=== PATIENT | male | born 1965 | race Caucasian/White ===

== ENCOUNTER → 2023-10-24 | Outpatient (CLI) | payer OTHER ==
[2023-10-24 16:44] LABS: ALBUMIN 3.8 g/dL (3.5-5.0); BILIRUBIN,TOTAL 0.4 mg/dL (0.2-1.0); CREATININE 0.9 mg/dL (0.5-1.3); TOTAL PROTEIN, SERUM 6.8 g/dL (6.0-8.3)
== END | disposition home or self-care (01) ==
LOC: LAB 15:06
PROVIDERS: ATTEND Student in an Organized Health Care Education/Training Program
DX: R07.9 Chest pain, unspecified (principal)
CPT/HCPCS: 36415; 80053

== ENCOUNTER 2024-01-10 17:20 | Emergency (ER) | payer OTHER ==
[~2024-01-10] VITALS: Ht 165.1 cm; Wt 81.6 kg
[2024-01-10] MEDS ORDERED: ondanSETRON 4MG INJ IVP STA (18:18)
[2024-01-10] MEDS ORDERED: DiphenhydrAMINE HCL 50 MG/ML VIAL IV STA (18:18)
[2024-01-10] MEDS ORDERED: 0.9%NACL 1000ML 1,000 ML IV STA (18:18)
[2024-01-10] MEDS ORDERED: PROCHLORPERAZINE 10MG/2ML INJ IV STA (18:18)
[2024-01-10 18:53] VITALS: BP 114/83; PULSE 80; RESP 20; TEMP 98.1; O2SAT 97
== END 2024-01-10 18:59 | disposition home or self-care (01) ==
LOC: EDH 17:20
DX: R51.9 Headache, unspecified (principal); H53.149 Visual discomfort, unspecified
CPT/HCPCS: 99281